=== PATIENT | male | born 1940 | race Caucasian/White ===

== ENCOUNTER 2016-06-04 19:29 | Emergency (ER) | payer MEDICARE, BC ==
[~2016-06-04] VITALS: Ht 170.2 cm; Wt 75.7 kg
[~2016-06-04 19:29] MED LIST: /ROPI1TA PO; ASPI81TA85 PO; CARB25TA PO; CRES10TA32 PO; CRES5TAB PO; DONETAB5 PO; LISI5TAB PO; MAGN30TA2 PO; SILD50TA PO; VESI10TA PO; VITA400C29 PO; VITA500C24 PO; [UNRECOGNIZED DRUG - CODE] PO
[2016-06-04] MEDS ORDERED: NS 500 ML IV ONE (20:15)
[2016-06-04 21:23] LABS: ANION GAP 5 MEQ/L (8-16); BLOOD UREA NITROGEN 32 MG/DL (7-18); CALCIUM LEVEL 9.3 MG/DL (8.8-10.2); CARBON DIOXIDE LEVEL 31 MEQ/L (21-32); CHLORIDE LEVEL 108 MEQ/L (98-107); CREATININE FOR GFR 1.16 MG/DL (0.70-1.30); GLOMERULAR FILTRATION RATE > 60.0 (>42); GLUCOSE, FASTING 90 MG/DL (83-110); SODIUM LEVEL 144 MEQ/L (136-145)
[2016-06-04] MEDS ORDERED: hydrALAZINE INJ 20 MG/ML VIAL IV ONE (21:30)
[2016-06-04 21:46] VITALS: BP 221/112
[2016-06-04 22:03] VITALS: BP 152/90
--- NOTE | 2016-06-06 08:39 | ECGEPIP ---
Stationary ECG Study [facility] - ED Test Date: 2016-06-04 Pat Name: SEAN BURNS Department: Room: - Gender: M Packaging Operator: abiodun : [id number] Requested By: CAPRI Hobbs Order Number: [id number] Reading MD: Jessica Narayan Measurements Intervals [place] Rate: 70 P: 86 WA: 232 QRS: -55 QRSD: 178 T: 30 QT: 435 QTc: 471 Interpretive Statements ELECTRONIC ATRIAL PACEMAKER RIGHT BUNDLE BRANCH BLOCK LEFT ANTERIOR FASCICULAR BLOCK Electronically Signed On 06-06-2016 8:39:33 EDT by Jessica Narayan
== END 2016-06-04 22:40 | disposition home or self-care (01) ==
LOC: EDBD 19:29 → M ED 20:32
DX: R29.6 Repeated falls (principal); W17.81XA Fall down embankment (hill), initial encounter; Y92.410 Unspecified street and highway as the place of occurrence of the external cause; Y93.89 Activity, other specified; Y99.8 Other external cause status; I10 Essential (primary) hypertension; I25.10 Atherosclerotic heart disease of native coronary artery without angina pectoris; G20 Parkinson's disease; Z79.899 Other long term (current) drug therapy; Z79.82 Long term (current) use of aspirin

== ENCOUNTER → 2016-08-20 | Outpatient (REF) | payer MEDICARE, BC ==
[2016-08-20 14:43] LABS: ALBUMIN 3.8 GM/DL (3.2-5.2); ALBUMIN/GLOBULIN RATIO 1.27 (1.00-1.93); BILIRUBIN,TOTAL 0.4 MG/DL (0.2-1.0); CALCIUM LEVEL 8.9 MG/DL (8.8-10.2); CREATININE FOR GFR 1.25 MG/DL (0.70-1.30); GLOMERULAR FILTRATION RATE 59.8 (>42); POTASSIUM SERUM 4.1 MEQ/L (3.5-5.1); TOTAL PROTEIN 6.8 GM/DL (6.4-8.2)
== END ==
LOC: M LABDRWAD 13:28
PROVIDERS: ATTEND Internal Medicine
DX: I10 Essential (primary) hypertension (principal); E78.5 Hyperlipidemia, unspecified

== ENCOUNTER → 2016-11-10 | Outpatient (CLI) | payer MEDICARE, BC ==
--- NOTE | 2016-11-10 15:18 | REP ---
LUMBOSACRAL SPINE: Five views of the lumbosacral spine are performed. Comparison made with prior study of 12/23/2010. There is no compression fracture. There is again evidence of spondylolisthesis, grade 1, of L5 on S1 with associated spondylolysis of L5. There is mild to moderate diffuse spurring. There is moderate disc space narrowing with subchondral sclerosis and vacuum at L2-3, L3-4, and L4-5. There is narrowing at L5-S1. There is sclerosis at the posterior facet joints diffusely. There is mild curvature of the thoracolumbar spine convex to the right. Findings are quite similar to the prior exam, with progression of disc degeneration at L3-4 level. 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 There are again moderate degenerative disc changes which have increased in severity at the L3-4 level, but are otherwise unchanged at other levels. Signed by Ar Bundy MD 11/10/2016 04:16 P
--- NOTE | 2016-11-10 15:20 | REP ---
RIGHT HIP, TWO VIEWS: Two views of the right hip are performed. There is no acute fracture or dislocation. There is mild joint space narrowing with subchondral sclerosis and spurring. IMPRESSION: Mild degenerative changes without fracture or dislocation. Signed by Ar Bundy MD 11/10/2016 04:16 P
== END ==
LOC: M WUC 13:53
PROVIDERS: ATTEND Family Medicine
DX: M54.5 Low back pain (principal); M25.551 Pain in right hip

== ENCOUNTER → 2017-01-28 | Outpatient (CLI) | payer MEDICARE, BC ==
--- NOTE | 2017-01-28 16:38 | REP ---
CHEST, TWO VIEWS: Two views of the chest are performed. COMPARISON: 11/30/2013 and 06/20/2010. There is mild patchy right upper lobe infiltrate. Otherwise no other definite acute infiltrate is seen. The heart is upper limits of normal in size. There is mild calcification and tortuosity of the thoracic aorta. The mediastinal silhouette is unchanged. There is a left dual lead pacemaker. There are mild degenerative changes of the spine. IMPRESSION: Mild patchy right upper lobe infiltrate. Signed by Ar Bundy MD 01/28/2017 08:43 P
== END ==
LOC: M WUC 15:55
PROVIDERS: ATTEND Family Medicine
DX: R05 Cough (principal); J98.4 Other disorders of lung

== ENCOUNTER → 2017-03-18 | Outpatient (CLI) | payer MEDICARE, BC | LOC: M WUC 11:27 | DX: J22 Unspecified acute lower respiratory infection (principal) | CPT/HCPCS: 71046 ==

== ENCOUNTER → 2017-04-06 | Outpatient (REF) | payer MEDICARE, BC | LOC: M LAB REF 19:36 | DX: N32.81 Overactive bladder (principal) | CPT/HCPCS: 87086 ==

== ENCOUNTER → 2017-05-28 | Outpatient (REF) | payer MEDICARE, BC | LOC: M LAB REF 11:10 | DX: N32.81 Overactive bladder (principal); R35.0 Frequency of micturition | CPT/HCPCS: 87086 ==

== ENCOUNTER → 2017-06-17 | Outpatient (CLI) | payer MEDICARE, BC | LOC: M ADAMS 18:15 | DX: R05 Cough (principal); R41.82 Altered mental status, unspecified | CPT/HCPCS: 71046 ==

== ENCOUNTER → 2017-06-25 | Outpatient (CLI) | payer MEDICARE, BC | LOC: M WUC 12:28 | DX: J18.9 Pneumonia, unspecified organism (principal) | CPT/HCPCS: 71046 ==

== ENCOUNTER 2017-08-30 05:08 | Emergency (ER) | payer MEDICARE, BC ==
[2017-08-30] MEDS: TETANUS/DIPHTHERIA TOX ADSORB ADULT 0.5ML SYR/VIAL (90714) IM (07:10)
== END 2017-08-30 07:38 | disposition home or self-care (01) ==
LOC: M ED 05:08
DX: S80.811A Abrasion, right lower leg, initial encounter (principal); W19.XXXA Unspecified fall, initial encounter; Y92.018 Other place in single-family (private) house as the place of occurrence of the external cause; I10 Essential (primary) hypertension; F03.90 Unspecified dementia, unspecified severity, without behavioral disturbance, psychotic disturbance, mood disturbance, and anxiety; G20 Parkinson's disease; Z79.899 Other long term (current) drug therapy; Z79.82 Long term (current) use of aspirin
CPT/HCPCS: 90714

== ENCOUNTER → 2018-03-01 | Outpatient (REF) | payer MEDICARE, BC ==
[~2018-03-01] MED LIST changes: +AMLO10TA5; +METO1TAB32; +SERT-138
[2018-03-01 18:50] LABS: APPEARANCE, URINE HAZY (CLEAR); BACTERIA, URINE AUTO NEGATIVE (NEGATIVE); BILIRUBIN, URINE AUTO NEGATIVE (NEGATIVE); BLOOD, URINE BLOOD NEGATIVE (NEGATIVE); COLOR, URINE YELLOW (YELLOW); GLUCOSE, URINE (UA) AUTO NEGATIVE (NEGATIVE); KETONE, URINE AUTO TRACE mg/dL (NEGATIVE); LEUKOCYTE ESTERASE, URINE AUTO 1+ (NEGATIVE); MUCUS, URINE SMALL (NEGATIVE); NITRITE, URINE AUTO NEGATIVE (NEGATIVE); PROTEIN, URINE AUTO NEGATIVE (NEGATIVE); RBC, URINE AUTO 1 /HPF (0-3); SQUAMOUS EPITHELIAL CELL UR AU 0 /HPF (0-6); UROBILINOGEN, URINE AUTO 0.2 mg/dL (0.0-2.0); WBC, URINE AUTO 8 /HPF (0-3)
== END ==
LOC: M LAB REF 16:53
PROVIDERS: ATTEND Internal Medicine
DX: R41.82 Altered mental status, unspecified (principal)

== ENCOUNTER → 2018-03-18 | Outpatient (REF) | payer MEDICARE, BC ==
[2018-03-18 18:59] LABS: APPEARANCE, URINE CLEAR (CLEAR); BACTERIA, URINE AUTO NEGATIVE (NEGATIVE); BILIRUBIN, URINE AUTO NEGATIVE (NEGATIVE); BLOOD, URINE BLOOD NEGATIVE (NEGATIVE); COLOR, URINE YELLOW (YELLOW); GLUCOSE, URINE (UA) AUTO NEGATIVE (NEGATIVE); KETONE, URINE AUTO TRACE mg/dL (NEGATIVE); LEUKOCYTE ESTERASE, URINE AUTO TRACE (NEGATIVE); MUCUS, URINE SMALL (NEGATIVE); NITRITE, URINE AUTO NEGATIVE (NEGATIVE); PROTEIN, URINE AUTO NEGATIVE (NEGATIVE); RBC, URINE AUTO 1 /HPF (0-3); SPECIFIC GRAVITY URINE AUTO 1.016 (1.002-1.035); SQUAMOUS EPITHELIAL CELL UR AU 0 /HPF (0-6); UROBILINOGEN, URINE AUTO 0.2 mg/dL (0.0-2.0); WBC, URINE AUTO 3 /HPF (0-3)
== END ==
LOC: M LAB REF 18:10
PROVIDERS: ATTEND Internal Medicine
DX: R41.82 Altered mental status, unspecified (principal)

== ENCOUNTER → 2018-04-04 | Outpatient (REF) | payer MEDICARE, BC ==
[2018-04-04 17:27] LABS: APPEARANCE, URINE CLEAR (CLEAR); BACTERIA, URINE AUTO NEGATIVE (NEGATIVE); BILIRUBIN, URINE AUTO NEGATIVE (NEGATIVE); BLOOD, URINE BLOOD NEGATIVE (NEGATIVE); CALCIUM OXALATE CRYSTALS SMALL; COLOR, URINE YELLOW (YELLOW); GLUCOSE, URINE (UA) AUTO NEGATIVE (NEGATIVE); KETONE, URINE AUTO TRACE mg/dL (NEGATIVE); LEUKOCYTE ESTERASE, URINE AUTO TRACE (NEGATIVE); MUCUS, URINE SMALL (NEGATIVE); NITRITE, URINE AUTO NEGATIVE (NEGATIVE); PROTEIN, URINE AUTO NEGATIVE (NEGATIVE); RBC, URINE AUTO 3 /HPF (0-3); SPECIFIC GRAVITY URINE AUTO 1.004 (1.002-1.035); SQUAMOUS EPITHELIAL CELL UR AU 0 /HPF (0-6); UROBILINOGEN, URINE AUTO 0.2 mg/dL (0.0-2.0); WBC, URINE AUTO 10 /HPF (0-3)
== END ==
LOC: M LAB REF 16:22
PROVIDERS: ATTEND Internal Medicine
DX: R41.82 Altered mental status, unspecified (principal)

== ENCOUNTER → 2018-08-05 | Outpatient (REF) | payer MEDICARE, BC ==
[~2018-08-05] MED LIST changes: -/ROPI1TA PO; +CRES10TA PO; -CRES10TA32 PO; +REQU1TAB16 PO
[2018-08-05 16:48] LABS: ALBUMIN 3.6 GM/DL (3.2-5.2); ALT/SGPT 27 U/L (12-78); BILIRUBIN,TOTAL 0.4 MG/DL (0.2-1.0); BLOOD UREA NITROGEN 28 MG/DL (7-18); CALCIUM LEVEL 8.8 MG/DL (8.8-10.2); CARBON DIOXIDE LEVEL 32 MEQ/L (21-32); CHLORIDE LEVEL 108 MEQ/L (98-107); CHOLESTEROL LEVEL 153 MG/DL (<200); CHOLESTEROL RISK RATIO 2.942 (<5); CREATININE FOR GFR 1.09 MG/DL (0.70-1.30); GLOMERULAR FILTRATION RATE > 60.0 (>42); GLUCOSE, FASTING 81 MG/DL (70-100); HDL CHOLESTEROL 52 MG/DL (>40); LDL CHOLESTEROL 86 MG/DL (<100); NON-HDL-C 101 MG/DL; POTASSIUM SERUM 4.2 MEQ/L (3.5-5.1); SODIUM LEVEL 142 MEQ/L (136-145); TRIGLYCERIDES LEVEL 76 MG/DL (<150)
== END ==
LOC: M LAB REF 14:43
PROVIDERS: ATTEND Internal Medicine
DX: E78.5 Hyperlipidemia, unspecified (principal); G20 Parkinson's disease; R63.4 Abnormal weight loss

== ENCOUNTER 2018-09-26 13:00 | Outpatient (RCR) | payer MEDICARE, BC | END 2018-10-08 | LOC: M ST 13:00 | PROVIDERS: ATTEND Internal Medicine | DX: G20 Parkinson's disease (principal) ==

== ENCOUNTER → 2018-10-04 | Outpatient (REF) | payer MEDICARE, BC ==
[2018-10-04 19:41] LABS: APPEARANCE, URINE CLOUDY (CLEAR); BACTERIA, URINE AUTO 1+ (NEGATIVE); BILIRUBIN, URINE AUTO NEGATIVE (NEGATIVE); BLOOD, URINE BLOOD NEGATIVE (NEGATIVE); CALCIUM OXALATE CRYSTALS LARGE; COLOR, URINE AMBER (YELLOW); GLUCOSE, URINE (UA) AUTO NEGATIVE (NEGATIVE); KETONE, URINE AUTO TRACE mg/dL (NEGATIVE); LEUKOCYTE ESTERASE, URINE AUTO NEGATIVE (NEGATIVE); MUCUS, URINE MODERATE (NEGATIVE); NITRITE, URINE AUTO NEGATIVE (NEGATIVE); PROTEIN, URINE AUTO 2+ mg/dL (NEGATIVE); RBC, URINE AUTO 7 /HPF (0-3); SPECIFIC GRAVITY URINE AUTO 1.031 (1.002-1.035); SQUAMOUS EPITHELIAL CELL UR AU 0 /HPF (0-6); WBC, URINE AUTO 8 /HPF (0-3)
== END ==
LOC: M LAB REF 19:18
PROVIDERS: ATTEND Internal Medicine
DX: R41.82 Altered mental status, unspecified (principal)

== ENCOUNTER 2018-11-29 09:55 | Emergency (ER) | payer MEDICARE, BC ==
[~2018-11-29] VITALS: Ht 175.3 cm; Wt 84.1 kg
[2018-11-29] MEDS ORDERED: MELA5CAP2 PO (10:23)
--- NOTE | 2018-11-29 10:53 | REP ---
CT brain: 11/29/2018. Indication: Head trauma. Comparison: 11/30/2013. Technique: Unenhanced axial CT images of the brain were obtained from skull base to vertex. Findings: There is no acute intracranial hemorrhage, acute cortical infarction, mass effect, hydrocephalus or acute calvarial fracture. Volume loss is present. Patchy areas of white matter hypoattenuation are noted most consistent with chronic small vessel disease. Impression: No acute intracranial process. Volume loss and sequelae of chronic microangiopathic ischemic disease. Electronically Signed by Aba Morrison DO 11/29/2018 10:44 A
[2018-11-29 11:39] VITALS: BP 143/95
== END 2018-11-29 11:53 | disposition home or self-care (01) ==
LOC: EDBD 09:55 → M ED 09:55
DX: S01.01XA Laceration without foreign body of scalp, initial encounter (principal); W18.39XA Other fall on same level, initial encounter; Y92.018 Other place in single-family (private) house as the place of occurrence of the external cause; I10 Essential (primary) hypertension; G20 Parkinson's disease; N40.0 Benign prostatic hyperplasia without lower urinary tract symptoms; Z79.82 Long term (current) use of aspirin

== ENCOUNTER → 2019-01-15 | Outpatient (REF) | payer MEDICARE, BC ==
[~2019-01-15] MED LIST changes: +MELA5CAP2 PO
[2019-01-17 10:27] LABS: AMORPHOUS SEDIMENT SMALL (NEGATIVE); APPEARANCE, URINE TURBID (CLEAR); BACTERIA, URINE AUTO NEGATIVE (NEGATIVE); BILIRUBIN, URINE AUTO NEGATIVE (NEGATIVE); BLOOD, URINE BLOOD NEGATIVE (NEGATIVE); CALCIUM OXALATE CRYSTALS SMALL; COLOR, URINE AMBER (YELLOW); GLUCOSE, URINE (UA) AUTO NEGATIVE (NEGATIVE); KETONE, URINE AUTO TRACE mg/dL (NEGATIVE); LEUKOCYTE ESTERASE, URINE AUTO 1+ (NEGATIVE); MUCUS, URINE SMALL (NEGATIVE); NITRITE, URINE AUTO NEGATIVE (NEGATIVE); PROTEIN, URINE AUTO NEGATIVE (NEGATIVE); RBC, URINE AUTO 2 /HPF (0-3); SPECIFIC GRAVITY URINE AUTO 1.025 (1.002-1.035); SQUAMOUS EPITHELIAL CELL UR AU 0 /HPF (0-6); UROBILINOGEN, URINE AUTO 0.2 mg/dL (0.0-2.0); WBC, URINE AUTO 11 /HPF (0-3)
== END ==
LOC: M LAB REF 10:14
PROVIDERS: ATTEND Internal Medicine
DX: R41.82 Altered mental status, unspecified (principal)

== ENCOUNTER → 2019-04-24 | Outpatient (REF) | payer MEDICARE, BC ==
[2019-04-24 13:11] LABS: HEMATOCRIT 43.5 % (42.0-52.0); HEMOGLOBIN 13.7 g/dl (13.5-17.5); MEAN CORPUSCULAR HEMOGLOBIN 29.7 pg (27.0-33.0); MEAN CORPUSCULAR HGB CONC 31.5 g/dl (32.0-36.5); MEAN CORPUSCULAR VOLUME 94.2 fl (80.0-96.0); PLATELET COUNT, AUTOMATED 158 10^3/uL (150-450); RED BLOOD COUNT 4.62 10^6/uL (4.30-6.10); WHITE BLOOD COUNT 11.6 10^3/uL (4.0-10.0)
[2019-04-24 13:40] LABS: ALBUMIN 3.4 GM/DL (3.2-5.2); BILIRUBIN,TOTAL 0.9 MG/DL (0.2-1.0); CALCIUM LEVEL 9.3 MG/DL (8.8-10.2); CREATININE FOR GFR 3.08 MG/DL (0.70-1.30); POTASSIUM SERUM 4.2 MEQ/L (3.5-5.1); TOTAL PROTEIN 6.9 GM/DL (6.4-8.2)
[2019-04-24 16:10] LABS: APPEARANCE, URINE CLOUDY (CLEAR); BACTERIA, URINE AUTO 1+ (NEGATIVE); BILIRUBIN, URINE AUTO NEGATIVE (NEGATIVE); BLOOD, URINE BLOOD 2+ (NEGATIVE); COLOR, URINE AMBER (YELLOW); GLUCOSE, URINE (UA) AUTO NEGATIVE (NEGATIVE); KETONE, URINE AUTO TRACE mg/dL (NEGATIVE); LEUKOCYTE ESTERASE, URINE AUTO TRACE (NEGATIVE); MUCUS, URINE SMALL (NEGATIVE); NITRITE, URINE AUTO NEGATIVE (NEGATIVE); PROTEIN, URINE AUTO NEGATIVE (NEGATIVE); RBC, URINE AUTO 60 /HPF (0-3); SPECIFIC GRAVITY URINE AUTO 1.024 (1.002-1.035); SQUAMOUS EPITHELIAL CELL UR AU 0 /HPF (0-6); WBC, URINE AUTO 15 /HPF (0-3)
== END ==
LOC: SKLAB8 11:00
PROVIDERS: ATTEND Internal Medicine
DX: Z79.899 Other long term (current) drug therapy (principal)

== ENCOUNTER → 2019-04-25 | Outpatient (REF) | payer MEDICARE, BC ==
[2019-04-25 07:45] LABS: CALCIUM LEVEL 8.6 MG/DL (8.8-10.2); CREATININE FOR GFR 2.33 MG/DL (0.70-1.30); POTASSIUM SERUM 4.4 MEQ/L (3.5-5.1); THYROID STIMULATING HORMONE 1.18 uIU/ML (0.358-3.740)
[2019-04-25 07:50] LABS: HEMATOCRIT 42.9 % (42.0-52.0); HEMOGLOBIN 13.2 g/dl (13.5-17.5); MEAN CORPUSCULAR HEMOGLOBIN 29.7 pg (27.0-33.0); MEAN CORPUSCULAR HGB CONC 30.8 g/dl (32.0-36.5); MEAN CORPUSCULAR VOLUME 96.6 fl (80.0-96.0); PLATELET COUNT, AUTOMATED 141 10^3/uL (150-450); RED BLOOD COUNT 4.44 10^6/uL (4.30-6.10)
== END ==
LOC: SKLAB8 07:00
PROVIDERS: ATTEND Internal Medicine
DX: N39.0 Urinary tract infection, site not specified (principal)

== ENCOUNTER → 2019-04-26 | Outpatient (REF) | payer MEDICARE, BC ==
[2019-04-26 07:33] LABS: HEMATOCRIT 41.2 % (42.0-52.0); HEMOGLOBIN 12.5 g/dl (13.5-17.5); MEAN CORPUSCULAR HEMOGLOBIN 29.3 pg (27.0-33.0); MEAN CORPUSCULAR HGB CONC 30.3 g/dl (32.0-36.5); MEAN CORPUSCULAR VOLUME 96.5 fl (80.0-96.0); PLATELET COUNT, AUTOMATED 135 10^3/uL (150-450); RED BLOOD COUNT 4.27 10^6/uL (4.30-6.10); WHITE BLOOD COUNT 7.6 10^3/uL (4.0-10.0)
[2019-04-26 07:46] LABS: CALCIUM LEVEL 8.4 MG/DL (8.8-10.2); CREATININE FOR GFR 1.75 MG/DL (0.70-1.30); GLOMERULAR FILTRATION RATE 40.3 (>42)
--- NOTE | 2019-04-26 19:53 | REP ---
Portable chest x-ray: Single view. History: Shortness of breath. Comparison chest x-ray: June 25, 2017. Findings: A bipolar pacemaker is seen in the right heart via the left side. The lungs are symmetrically aerated and free of infiltrate. Pulmonary vasculature is not increased. Cardiomegaly is again observed unchanged. Impression: No infiltrates seen. Cardiomegaly with pacemaker. Electronically Signed by Chapincito Drummond MD 04/27/2019 09:31 A
== END ==
LOC: SKLAB8 18:33
PROVIDERS: ATTEND Internal Medicine
DX: R06.02 Shortness of breath (principal)

== ENCOUNTER → 2019-04-27 | Outpatient (REF) | payer MEDICARE, BC ==
[2019-04-27 09:08] LABS: HEMATOCRIT 41.1 % (42.0-52.0); HEMOGLOBIN 12.8 g/dl (13.5-17.5); MEAN CORPUSCULAR HEMOGLOBIN 29.7 pg (27.0-33.0); MEAN CORPUSCULAR HGB CONC 31.1 g/dl (32.0-36.5); MEAN CORPUSCULAR VOLUME 95.4 fl (80.0-96.0); PLATELET COUNT, AUTOMATED 168 10^3/uL (150-450); RED BLOOD COUNT 4.31 10^6/uL (4.30-6.10); WHITE BLOOD COUNT 7.8 10^3/uL (4.0-10.0)
[2019-04-27 09:20] LABS: ALBUMIN 2.8 GM/DL (3.2-5.2); BILIRUBIN,TOTAL 0.5 MG/DL (0.2-1.0); CALCIUM LEVEL 8.5 MG/DL (8.8-10.2); CREATININE FOR GFR 1.81 MG/DL (0.70-1.30); GLOMERULAR FILTRATION RATE 38.8 (>42); POTASSIUM SERUM 3.9 MEQ/L (3.5-5.1); TOTAL PROTEIN 6.1 GM/DL (6.4-8.2)
== END ==
LOC: SKLAB8 07:00
PROVIDERS: ATTEND Internal Medicine
DX: E86.0 Dehydration (principal)

== ENCOUNTER → 2019-04-28 | Outpatient (REF) | payer MEDICARE, BC ==
[2019-04-28 07:12] LABS: HEMATOCRIT 38.7 % (42.0-52.0); HEMOGLOBIN 12.1 g/dl (13.5-17.5); MEAN CORPUSCULAR HGB CONC 31.3 g/dl (32.0-36.5); PLATELET COUNT, AUTOMATED 151 10^3/uL (150-450); RED BLOOD COUNT 4.03 10^6/uL (4.30-6.10)
[2019-04-28 07:39] LABS: ALBUMIN 2.7 GM/DL (3.2-5.2); BILIRUBIN,TOTAL 0.4 MG/DL (0.2-1.0); CALCIUM LEVEL 8.4 MG/DL (8.8-10.2); CREATININE FOR GFR 1.72 MG/DL (0.70-1.30); GLOMERULAR FILTRATION RATE 41.1 (>42); POTASSIUM SERUM 3.5 MEQ/L (3.5-5.1); TOTAL PROTEIN 5.9 GM/DL (6.4-8.2)
== END ==
LOC: SKLAB8 07:30
PROVIDERS: ATTEND Internal Medicine
DX: E86.0 Dehydration (principal)

== ENCOUNTER → 2019-04-28 | Outpatient (REF) | payer MEDICARE, BC | LOC: SKLAB8 07:00 | PROVIDERS: ATTEND Internal Medicine | DX: J11.1 Influenza due to unidentified influenza virus with other respiratory manifestations (principal) ==

== ENCOUNTER → 2019-05-01 | Outpatient (REF) | payer MEDICARE, BC ==
[2019-05-01 07:31] LABS: BASO # 0.1 10^3/uL (0.0-0.2); BASO % 0.8 % (0.0-1.0); EOS # 0.4 10^3/uL (0.0-0.5); EOS % 3.9 % (0.0-3.0); HEMATOCRIT 40.7 % (42.0-52.0); HEMOGLOBIN 12.4 g/dl (13.5-17.5); LYMPH # 1.2 10^3/uL (1.5-5.0); LYMPH % 12.4 % (24.0-44.0); MEAN CORPUSCULAR HGB CONC 30.5 g/dl (32.0-36.5); MEAN CORPUSCULAR VOLUME 95.1 fl (80.0-96.0); MONO # 0.6 10^3/uL (0.0-0.8); MONO % 6.7 % (0.0-5.0); NEUTROPHILS # 7.1 10^3/uL (1.5-8.5); NEUTROPHILS % 74.4 % (36.0-66.0); PLATELET COUNT, AUTOMATED 150 10^3/uL (150-450); RED BLOOD COUNT 4.28 10^6/uL (4.30-6.10); WHITE BLOOD COUNT 9.5 10^3/uL (4.0-10.0)
[2019-05-01 07:55] LABS: ALBUMIN 2.7 GM/DL (3.2-5.2); BILIRUBIN,TOTAL 0.5 MG/DL (0.2-1.0); CALCIUM LEVEL 8.4 MG/DL (8.8-10.2); CREATININE FOR GFR 1.38 MG/DL (0.70-1.30); GLOMERULAR FILTRATION RATE 53.1 (>42); POTASSIUM SERUM 3.7 MEQ/L (3.5-5.1); TOTAL PROTEIN 6.1 GM/DL (6.4-8.2)
== END ==
LOC: SKLAB8 07:00
PROVIDERS: ATTEND Internal Medicine
DX: E86.0 Dehydration (principal)